=== PATIENT | female | born 1995 | race Caucasian/White ===

== ENCOUNTER 2019-09-08 10:13 | Outpatient (CLI) | payer OTHER, SELFPAY ==
[2019-09-08 10:30] LABS: Hematocrit 33.9 % (37.0-47.0); Hemoglobin 11.2 g/dL (12.0-15.0); Mean Corpuscular Hemoglobin 29.4 pg (26-34); Mean Platelet Volume 11.9 fl (7.4-10.4); Platelet Count Result 146 k/mm3 (150-375); Red Blood Count 3.81 M/mm3 (4.2-5.4); Red Cell Distribution Width 13.7 % (11.5-14.5); White Blood Count 10.3 K/mm3 (4.5-10.0)
[2019-09-10 08:21] LABS: Rapid Plasma Reagin Non-Reactive (NonReactive)
== END 2019-09-08 10:14 | disposition home or self-care (01) ==
PROVIDERS: Visit Provider Obstetrics & Gynecology
DX: Z01.812 Encounter for preprocedural laboratory examination (principal)
CPT/HCPCS: 36415; 85027; 86592; 86850; 86900; 86901

== ENCOUNTER 2019-09-10 05:47 | Inpatient (IN) | payer OTHER, SELFPAY ==
[2019-09-10] VITALS (63 sets, daily range): BP systolic 60–116; BP diastolic 44–71; PULSE 42–147; RESP 15–18; TEMP 36.1–36.7; O2SAT 96–100; BMI 26.9
[2019-09-10] MEDS: LACTATED RINGERS 1,000 ML 125 ML IV CONT (06:26)
--- NOTE | 2019-09-10 06:30 | LDADM ---
This patient, Genny Ayala, was admitted to Labor/Delivery/Recovery 119 on 09/10/19 at 05:47. Plans for labor, pain management and were discussed with patient. Patient/family oriented to hospital policies and general routines including ID bracelet, bed and alarms, visiting hours, pain management, procedures, bathroom and other care routines, personal items, smoking policy, room service/diet and guest tray routines, security routines, and visiting hours. Patient/Family are encouraged to report perceived risks to care and to ask questions if they do not understand what they are told or what they should do. See OBIX for further documentation.
--- NOTE | 2019-09-10 06:47 | WPDANESEPPF ---
Anes - Initial Pre Proc Eval Procedure: Operation Date: 09/10/19 07:30 Proposed Procedures p Section - Joey Hess MD Date/Time: 09/10/19 06:47 Surgeon: Joey Hess MD Pre Op Diagnosis: section Patient Data Age: 24 Gender: F Height: 1.83 m Weight: 90 kg Last Vital Signs Pulse 78 09/10/19 06:28 BP 116/62 09/10/19 06:28 Allergies Allergy/AdvReac Type Severity Reaction Status Date / Time No Known Allergies Allergy Unverified 12/16/17 14:39 Home Medications Medication Instructions Recorded Confirmed Type PNV cmb#95-ferrous fumarate-FA 1 tablet PO DAILY 08/27/19 08/27/19 History [] valacyclovir [Valtrex] 500 mg PO Q12H 08/27/19 08/27/19 History Patient hx anesthesia problems: none Family hx anesthesia problems: none PMFSH Family History Family History (Updated 08/27/19 @ 13:38 by Sofi Brown RN) Mother Cervical cancer Social History Social History Smoking status: Current every day smoker Tobacco type: cigarettes Substance use: current Gender identity (if verbalized by the patient): Female Spiritual care concerns: No Anes - Eval Final PreProcedure Day of Procedure 09/10/19 06:47 Patient weight: overweight Heart: regular rate and rhythm Lungs: clear to auscultation and normal air movement Airway: Mallampati scale class II Neurological: alert and oriented Last oral intake: >/= 8 hours ASA classification: II Emergent: no Anesthetic plan: proceed Anesthesia type and monitoring: regional spinal and standard monitoring Informed Consent: The patient's anesthetic plan and its attendant risks and benefits were discussed with the patient/family/POA. Questions were solicited and answers provided to the satisfaction of the patient/family/POA.
[2019-09-10] MEDS: LACTATED RINGERS 1,000 ML 999 ML IV CONT (07:23)
--- NOTE | 2019-09-10 07:31 | PM.IMHP ---
H&P: HPI History of Present Illness Date/Time: 09/10/19 07:31This patient is a 24-year-old 2 para 1001 at 39 weeks gestation who presents for delivery. She has a active genital herpes outbreak. She reports good movement. She denies any loss of fluid or vaginal bleeding. She denies any headache, blurry vision, epigastric pain. She denies any chest pain or shortness of breath. Chief complaint: section Narrative: Genny Ayala is a 24 year old female Review of Systems Constitutional: Constitutional: Reports no additional constitutional complaints, Denies fatigue, Denies headache(s), Denies lethargy and Denies weakness Eyes: Eyes: Reports no additional eye complaints, Denies blurry vision and Denies photophobia ENT: Reports as per HPI, Denies headache(s) and Denies neck pain Cardiovascular: Cardiovascular: Denies chest pain, Denies diaphoresis, Denies leg edema, Denies palpitations and Denies dyspnea Respiratory: Respiratory: Denies hemoptysis, Denies dyspnea and Denies wheezing Gastrointestinal: Gastrointestinal: Denies abdominal pain, Denies melena, Denies bloating, Denies hematochezia, Denies nausea and Denies vomiting Genitourinary: Genitourinary: Reports no additional female genitourinary complaints Musculoskeletal: Musculoskeletal: Denies joint swelling, Denies neck pain, Denies numbness and Denies stiffness Neurologic: Denies Abnormal speech present, Denies confusion, Denies headache(s), Denies numbness and Denies weakness Psychiatric: Psychiatric: Denies anxiety, Denies confusion, Denies depression, Denies homicidal ideation and Denies suicidal ideation Endocrine: Endocrine: Denies fatigue and Denies palpitations Allergic/Immunologic: Allergic/Immunologic: Denies wheezing [facility] Family History Family History (Updated 08/27/19 @ 13:38 by Sofi Brown RN) Mother Cervical cancer Social History Social History Smoking status: Current every day smoker Tobacco type: cigarettes Substance use: current Gender identity (if verbalized by the patient): Female Spiritual care concerns: No Meds Home Medications and Allergies Home Medications Medication Instructions Recorded Confirmed Type PNV cmb#95-ferrous fumarate-FA 1 tablet PO DAILY 08/27/19 09/10/19 History [] valacyclovir [Valtrex] 500 mg PO Q12H 08/27/19 09/10/19 History Allergies Allergy/AdvReac Type Severity Reaction Status Date / Time No Known Allergies Allergy Unverified 12/16/17 14:39 Vital Signs Vital Signs - 24 hr 09/10/19 06:28 Pulse Rate 78 Blood Pressure 116/62 Exam Const: General: healthy appearing, comfortable and no acute distress; No confusion Orientation/consciousness: No confusion Eyes: Direct Ophthalmoscopy: No photophobia Resp: Auscultation: clear to auscultation bilaterally, no rales, no rhonchi and no wheezes Cardio: Rate: regular rate Heart sounds: no click, no murmurs and no rubs GI: Inspection: non-distended GI Palp: No abdominal tenderness Auscultation: normal bowel sounds Neuro: General: No confusion Speech: No Abnormal speech present Extrem: General: normal to inspection, no pedal edema and no calf tenderness Assessment and Plan Assessment and plan (1) Term : Code(s): Z34.90 - Encounter for supervision of normal , unspecified, unspecified trimester Status: Acute (2) Maternal active HSV, delivered, current hospitalization: Code(s): O98.52 - Other viral diseases complicating childbirth; B00.9 - Herpesviral infection, unspecified Status: Acute Assessment and Plan: This patient is a 24-year-old 2 para 1001 at term with an active HSV outbreak. We are to proceed with delivery. She understands the risks, benefits, and alternatives. She has completed the informed consent process is ready to proceed.
[2019-09-10] MEDS: ceFAZolin 2 GM/D5W 50 ML 2 GM/50 ML BAG IVPB (07:41)
[2019-09-10] MEDS: OXYTOCIN 30 UNITS/NS 500 ML 30 UNITS/500 ML BAG 125 UNITS IV CONT (08:19)
--- NOTE | 2019-09-10 08:29 | P.OP_ITS ---
Procedure Note - Detailed Date of procedure: 09/10/19 Pre-op diagnosis: section Term gestation, Active Genital HSV Post-op diagnosis: same Procedure performed: low-transverse delivery Description of procedure: The patient was taken the operating room. She was prepped and draped in the dorsal supine position with leftward tilt after induction of spinal anesthetic. When anesthesia was found to be adequate a low- transverse skin incision was made and carried down to the level the fascia with the knife. The fascial incision was made at the midline with a scalpel. The fascial incision was extended laterally with [place] scissors. The fascia was tented upward superior and inferior with Amee clamps. The rectus muscles were dissected off bluntly. The rectus muscles at the midline. The preperitoneal fat was dissected bluntly at the superior aspect of the separate the rectus muscles. The peritoneal cavity was entered bluntly in the same area. The peritoneal incision was extended superior and inferior with good visualization of bladder. Bladder blade was inserted. A low-transverse incision was made on the uterus with the scalpel. It was carried down the level of the amniotic cavity with a knife. The amniotic cavity bluntly. The uterine incision was made laterally with blunt traction. The infant was delivered. The cord was clamped and cut. The was handed off to waiting pediatric staff. Cord bloods were obtained. The placenta was removed manually. The uterus was exteriorized. Uterus cleared of all clots and debris. Uterus closed in 0 Vicryl in a running locked fashion. An imbricating layer of 0 Vicryl was also placed on the to bolster the closure. The uterus was returned to the abdomen. The gutters were cleared of all clots and debris. The fascia was closed 0 Vicryl in a running fashion. Subcutaneous tissue was irrigated and bleeding areas were cauterized. The skin was closed with subcuticular absorbable tam. The incision was covered with derma cardenas. The patient tolerated the procedure well. She was taken recovery room stable condition. Sponge, lap, needle counts were correct x2. Anesthesia: spinal Surgeon: Joey Hess MD Estimated blood loss (mL): 650 Drains: No Packing: No Pathology: none sent Complications: No immediate complications Condition: stable Disposition: floor Findings: Normal maternal anatomy. Average size infant with normal Apgars.
[2019-09-10 09:53] LABS: Amphetamine Screen Urine Negative (Negative); Barbiturate Screen Urine Negative (Negative); Benzodiazepines Screen Urine Negative (Negative); Cannabinoid Screen Urine Positive (Negative); Cocaine Screen Urine Negative (Negative); Methadone Screen Urine Negative (Negative); Opiate Screen Urine Negative (Negative); Phencyclidine Screen Urine Negative (Negative)
--- NOTE | 2019-09-10 10:50 | OBPPTRN ---
Patient transferred to post room # 283 via stretcher. Support person present. Oriented to unit, room, information board, rooming in, admission packet and security measures. Patient verbalizes understanding.
[2019-09-10] MEDS: DEXTROSE 5%/0.45% SOD CHL 1,000 ML 125 ML IV CONT (12:23)
[2019-09-10] MEDS: ACETAMINOPHEN 325 MG TABLET 650 MG PO (19:36)
--- NOTE | 2019-09-10 19:57 | PC.NURSE ---
This RN went to give pt her Acyclovir but found none in Pyxis. Called Pharmacy and spoke with Jody that stated she had sent 3 pills this a.m. This RN was unable to find pills in Pyxis. Will inform oncoming nurse of this.
[2019-09-10] MEDS: valACYclovir HCL 500 MG TABLET PO (21:29)
[2019-09-10] MEDS: IBUPROFEN 600 MG TABLET PO (23:21)
[2019-09-11 05:00] VITALS: BP 108/63; PULSE 70; RESP 16; TEMP 36.4; O2SAT 100
[2019-09-11] MEDS: IBUPROFEN 600 MG TABLET PO ×3 (05:34→19:58)
[2019-09-11 06:05] LABS: Basophils Percent Auto 0.3 % (0.2-1.2); Eosinophils Absolute Auto 0.1 K/mm3 (0-0.3); Hematocrit 28.9 % (37.0-47.0); Hemoglobin 9.3 g/dL (12.0-15.0); Immature Granulocyte Absolute 0.03 K/mm3 (0.00-0.031); Immature Granulocyte Percent A 0.3 % (0-0.5); Lymphocytes Absolute Auto 1.81 K/mm3 (0.9-3.2); Lymphocytes Percent Auto 17.4 % (18.3-44.2); Mean Corpuscular HGB Conc 32.2 g/dl (32-36); Mean Platelet Volume 12.4 fl (7.4-10.4); Monocytes Absolute Auto 0.5 K/mm3 (0.1-0.6); Neutrophils Absolute Auto 7.9 K/mm3 (1.3-6.7); Platelet Count Result 118 k/mm3 (150-375); Red Blood Count 3.21 M/mm3 (4.2-5.4); Red Cell Distribution Width 13.6 % (11.5-14.5); White Blood Count 10.4 K/mm3 (4.5-10.0)
--- NOTE | 2019-09-11 07:43 | WPDANLDPN2 ---
Anes-Prog Note L&D Date/Time: 09/11/19 07:43 Comfortable throughout: section Neuraxial method: spinal Epidural/Spinal procedure site: clean & non-tender Neuro status: Neuro function grossly intact. Cardiovascular status: normal Respiratory status: normal Airway patency: baseline Mental status: baseline Post-Op hydration status: normal Vital Signs: Last Vital Signs Temp 36.4 C 09/11/19 05:00 Pulse 70 09/11/19 05:00 Resp 16 09/11/19 05:00 BP 108/63 09/11/19 05:00 Pulse Ox 100 09/11/19 05:00 I/O: Intake & Output 09/10/19 09/10/19 09/11/19 15:59 23:59 07:59 Intake Total 1150 300 Output Total 325 1925 Balance 825 -1625 Post-procedural complaints: none Patient feedback: Patient satisfied with anesthetic care.
--- NOTE | 2019-09-11 07:43 | WPDANLDNPN2 ---
Anes-Prog Note L&D-Neuraxial Date/Time: 09/11/19 07:43 Neuraxial medications: intrathecal PF morphine Opiod-related complaints: none Patient feedback: Patient satisfied with post-operative pain management.
[2019-09-11 08:05] VITALS: BP 101/62; PULSE 72; RESP 18; TEMP 36.4; O2SAT 100
[2019-09-11] MEDS: DOCUSATE SODIUM 100 MG CAPSULE PO ×2 (08:11→17:06)
[2019-09-11] MEDS: MULTIVIT/MIN/PREN/FOL AC/IRON TABLET 1 TAB PO (08:12)
[2019-09-11] MEDS: POLYSACCHARIDE IRON COMPLEX 150 MG CAPSULE PO ×2 (08:12→17:06)
[2019-09-11] MEDS: valACYclovir HCL 500 MG TABLET PO (08:12)
--- NOTE | 2019-09-11 08:36 | PM.OBPNVD ---
OB - PN: Subj Subjective Date/time seen: 09/11/19 08:36 Patient comments: no complaints, pain well controlled, tolerating diet and flatus present OB - PN: Obj Data Labs CBC & Chem 7: 09/11/19 05:38 Labs: Laboratory Results - last 24 hr 09/10/19 09/11/19 09:08 05:38 WBC 10.4 H RBC 3.21 L Hgb 9.3 L Hct 28.9 L MCV 90.0 MCH 29.0 MCHC 32.2 RDW 13.6 Plt Count 118 L MPV 12.4 H Immature Gran % (Auto) 0.3 Neut % (Auto) 76.0 H Lymph % (Auto) 17.4 L [place] % (Auto) 5.0 Eos % (Auto) 1.0 Baso % (Auto) 0.3 Lymph # (Auto) 1.81 [place] # (Auto) 0.5 Eos # (Auto) 0.1 Baso # (Auto) 0.0 Abs Immat Gran (auto) 0.03 Absolute Neuts (auto) 7.9 H Absolute Nucleated RBC 0.0 Nucleated RBC % 0.0 Urine Opiates Screen Negative Urine Methadone Screen Negative Ur Barbiturates Screen Negative Ur Phencyclidine Scrn Negative Ur Amphetamine Screen Negative U Benzodiazepines Scrn Negative Urine Cocaine Screen Negative U Cannabinoids Screen Positive A OB - PN A/P Plan day: 1 Comments: Post Op LTCS - no problems, routine recovery Time Spent With Patient Time: Total time spent is greater than 50% in coordination of care (as documented) at patient's floor/unit and/or counseling patient: Exam Const: General: cooperative, healthy appearing, comfortable and no acute distress Resp: Auscultation: no crackles, no rales, no rhonchi and no wheezes Cardio: Rhythm: regular rhythm Heart sounds: no click and no murmurs GI: Inspection: non-distended Auscultation: normal bowel sounds Extrem: General: normal to inspection, no pedal edema and no calf tenderness
[2019-09-11 20:40] VITALS: BP 106/69; PULSE 73; RESP 16; TEMP 36.9; O2SAT 100
--- NOTE | 2019-09-12 07:34 | PM.OBPNVD ---
OB - PN: Subj Subjective Date/time seen: 09/12/19 07:34 Patient comments: no complaints, pain well controlled, incisional pain, tolerating diet and flatus present OB - PN: Obj Data Labs CBC & Chem 7: 09/11/19 05:38 OB - PN A/P Plan day: 2 Plan: routine care and discharge home Comments: POD#2 LTCS - no problems, Time Spent With Patient Time: Total time spent is greater than 50% in coordination of care (as documented) at patient's floor/unit and/or counseling patient: Exam Const: General: comfortable, no acute distress and alert Resp: Effort & Inspection: normal respiratory effort Auscultation: no crackles, no rales and no rhonchi Cardio: Rate: regular rate Heart sounds: no click, no murmurs and no rubs GI: Inspection: non-distended GI Palp: No Tenderness to palpation present (GI) Auscultation: normal bowel sounds Other: Incision - CDI Extrem: General: normal to inspection, no pedal edema and no calf tenderness
--- NOTE | 2019-09-12 07:36 | PM.OBDSVD ---
DS: Admitting Diagnosis Admitting Diagnosis Admitting Diagnosis: Encounter for supervision of normal , unspecified, unspecified trimester DS: Discharge Diagnosis Discharge Diagnosis (1) Maternal active HSV, delivered, current hospitalization: Code(s): O98.52 - Other viral diseases complicating childbirth; B00.9 - Herpesviral infection, unspecified Status: Acute (2) delivery delivered: Code(s): O82 - Encounter for delivery without indication Status: Acute OB - DS: Summary OB Procedures : None OB Procedures Intrapartum: OB Procedures: : None Peripartum Data Infant Delivery Method: Section Procedures: Procedures Operation Date: 09/10/19 07:30 Actual Procedures Side Surgeon p Section Joey Hess MD complications: none Status at Discharge Functional status at discharge: independent ambulation Time Spent with Patient Time attestation: Total time spent providing and/or coordinating discharge services: DS: Data Data Completed and Pending Pending studies at discharge: Pending at discharge 09/10/19 07:59 Surgical [PTH] Routine Discharge Plan Discharge Discharging Clinician: Joey Hess Patient Disposition: Home, Self-Care Activity: pelvic rest Diet: regular Patient Instructions: How to Stop Smoking (GEN), Cigarette Smoking and Your Health (GEN), Secondhand Smoke Exposure in Children (GEN), Antibiotic Form Stand Alone Forms: General Discharge Information Follow-up/Referrals: Joey Hess MD [Physician] - Discharge Medications: New hydrocodone-acetaminophen 5-325 mg tablet 1 - 2 tablet PO Q4H PRN (Reason: pain) Qty: 25 RF: 0 Continued PNV cmb#95-ferrous fumarate-FA [] 28 mg iron- 800 mcg Tablet 1 tablet PO DAILY RF: 0 valacyclovir [Valtrex] 500 mg Tablet 500 mg PO Q12H RF: 0 Date of admission: 09/10/19 05:47 Primary Care Provider: PHYSICIAN,[employer] TECHNICAL ASSISTANT Admitting Provider: Joey Hess Attending physician on admission: Joey Hess
[2019-09-12 08:20] VITALS: BP 113/74; PULSE 80; RESP 18; TEMP 37; O2SAT 98
[2019-09-12] MEDS: IBUPROFEN 600 MG TABLET PO (08:37)
[2019-09-12] MEDS: DOCUSATE SODIUM 100 MG CAPSULE PO (08:37)
[2019-09-12] MEDS: MULTIVIT/MIN/PREN/FOL AC/IRON TABLET 1 TAB PO (08:37)
[2019-09-12] MEDS: POLYSACCHARIDE IRON COMPLEX 150 MG CAPSULE PO (08:37)
[2019-09-12] MEDS: valACYclovir HCL 500 MG TABLET PO (08:37)
[2019-09-12] MEDS: TETANUS,DIPHTHERIA,AC PERTUSSIS ADULT (0.5 ML) BOOSTRIX IM (09:38)
--- NOTE | 2019-09-12 11:15 | PC.NURSE ---
Patient instructed on viewing the discharge video Mother & Baby Care, The First Two Weeks online. Patient was given the opportunity and encouraged to ask questions. Patient verbalized understanding of information shared and has been given the mother/baby guide for home reference.
[2019-09-14 11:07] VITALS: BP 114/80; PULSE 74; RESP 20; TEMP 36.8; O2SAT 100
== END 2019-09-12 11:40 | disposition home or self-care (01) | DRG 540 ==
LOC: ANHLDR 05:51 → ANHOB2 10:54
PROVIDERS: Admitting Provider Obstetrics & Gynecology; Visit Provider Obstetrics & Gynecology
PROC: 10D00Z1 Extraction of Products of Conception, Low, Open Approach (ICD-10-PCS; CPT 59514; principal; 2019-09-10 07:30)
DX: O98.52 Other viral diseases complicating childbirth (principal); Z37.0 Single live birth; Z3A.39 39 weeks gestation of pregnancy; B00.9 Herpesviral infection, unspecified; O69.81X0 Labor and delivery complicated by cord around neck, without compression, not applicable or unspecified
CPT/HCPCS: 36415; 80307; 85025; 88307; 90715; A9270; J0131; J0690; J2274; J2405; J2590; J7120

== ENCOUNTER 2019-10-22 00:41 | Outpatient (CLI) | payer OTHER, SELFPAY ==
[2019-10-22 16:39] LABS: SARS-CoV-2 RNA PCR Negative
== END 2019-10-22 00:42 | disposition home or self-care (01) ==
LOC: ANHCOVIDDT 00:42
PROVIDERS: Visit Provider Obstetrics & Gynecology
DX: Z01.812 Encounter for preprocedural laboratory examination (principal); Z20.828 Contact with and (suspected) exposure to other viral communicable diseases
CPT/HCPCS: 87635; C9803; U0003

== ENCOUNTER 2019-10-24 01:51 | Day surgery (SDC) | payer OTHER, SELFPAY ==
[2019-10-11 14:28] VITALS: BMI 21.4
[2019-10-24] VITALS (8 sets, daily range): BP systolic 94–121; BP diastolic 53–73; PULSE 47–74; RESP 12–18; TEMP 36–36.6; O2SAT 98–100
--- NOTE | 2019-10-24 08:18 | WPDANESEPPF ---
Anes - Initial Pre Proc Eval Procedure: Operation Date: 10/24/19 10:00 Proposed Procedures p Laparoscopic Tubal Sterilization With Fulguration - Joey Hess MD Date/Time: 10/24/19 08:18 Surgeon: Joey Hess MD Pre Op Diagnosis: Desires Steriliztion Patient Data Age: 24 Gender: F Height: 6 ft Weight: 71.67 kg Allergies Allergy/AdvReac Type Severity Reaction Status Date / Time No Known Allergies Allergy Verified 10/24/19 08:44 Home Medications Medication Instructions Recorded Confirmed Type PNV cmb#95-ferrous fumarate-FA 1 tablet PO DAILY 08/27/19 10/24/19 History [] Patient hx anesthesia problems: none Family hx anesthesia problems: none PMFSH Past Medical History Medical History (Updated 10/24/19 @ 08:18 by Marcellus Trotter MD) Healthy adult Family History Family History (Updated 08/27/19 @ 13:38 by Sofi Brown RN) Mother Cervical cancer Social History Social History Years smoked: 2 Smoking status: Current every day smoker Tobacco type: cigarettes Substance use: current Substance use type: marijuana Last use: 10/09/19 Gender identity (if verbalized by the patient): Female Spiritual care concerns: No Anes - Eval Final PreProcedure Day of Procedure 10/24/19 08:18 Patient weight: normal Heart: regular rate and rhythm Lungs: clear to auscultation Airway: Mallampati scale class II Neurological: alert and oriented Last oral intake: >/= 8 hours ASA classification: II Emergent: no Anesthetic plan: proceed Anesthesia type and monitoring: general ETT and standard monitoring Informed Consent: The patient's anesthetic plan and its attendant risks and benefits were discussed with the patient/family/POA. Questions were solicited and answers provided to the satisfaction of the patient/family/POA.
[2019-10-24] MEDS: ACETAMINOPHEN 500 MG TABLET 1000 MG PO (08:48)
[2019-10-24] MEDS: KETOROLAC 15 MG/ML VIAL (*BKC) IV PUSH (09:05)
[2019-10-24] MEDS: LACTATED RINGERS 1,000 ML 30 ML IV CONT ×2 (09:06→11:43)
--- NOTE | 2019-10-24 10:12 | SUR.PREOP ---
1010 updated pt on delay to or and pt states will updated family.
--- NOTE | 2019-10-24 10:21 | PM.IMHP ---
H&P: HPI History of Present Illness Date/Time: 10/24/19 10:21 Chief complaint: Desires Steriliztion Narrative: Genny Ayala is a 24 year old female Who desires female sterilization. She understands that sterilization is permanent. I recommended laparoscopic bilateral tubal ligation. She was to proceed with that. She understands there is risk. She understands that injuries may occur that result in hospitalization, severe illness, and more surgery. She understands risk of hemorrhage and infection. Review of Systems Constitutional: Constitutional: Reports no additional constitutional complaints, Denies fatigue, Denies headache(s), Denies lethargy and Denies weakness Eyes: Eyes: Reports no additional eye complaints, Denies blurry vision and Denies photophobia ENT: Reports as per HPI, Denies headache(s) and Denies neck pain Cardiovascular: Cardiovascular: Denies chest pain, Denies diaphoresis, Denies leg edema, Denies palpitations and Denies dyspnea Respiratory: Respiratory: Denies hemoptysis, Denies dyspnea and Denies wheezing Gastrointestinal: Gastrointestinal: Denies abdominal pain, Denies melena, Denies bloating, Denies hematochezia, Denies nausea and Denies vomiting Genitourinary: Genitourinary: Reports no additional female genitourinary complaints Musculoskeletal: Musculoskeletal: Denies joint swelling, Denies neck pain, Denies numbness and Denies stiffness Neurologic: Denies Abnormal speech present, Denies confusion, Denies headache(s), Denies numbness and Denies weakness Psychiatric: Psychiatric: Denies anxiety, Denies confusion, Denies depression, Denies homicidal ideation and Denies suicidal ideation Endocrine: Endocrine: Denies fatigue and Denies palpitations Allergic/Immunologic: Allergic/Immunologic: Denies wheezing PMFSH Past Medical History Medical History (Updated 10/24/19 @ 10:22 by Joey Hess MD) Healthy adult Family History Family History (Updated 08/27/19 @ 13:38 by Sofi Brown RN) Mother Cervical cancer Social History Social History Years smoked: 2 Smoking status: Current every day smoker Tobacco type: cigarettes Substance use: current Substance use type: marijuana Last use: 10/09/19 Gender identity (if verbalized by the patient): Female Spiritual care concerns: No Meds Home Medications and Allergies Home Medications Medication Instructions Recorded Confirmed Type PNV cmb#95-ferrous fumarate-FA 1 tablet PO DAILY 08/27/19 10/24/19 History [] Allergies Allergy/AdvReac Type Severity Reaction Status Date / Time No Known Allergies Allergy Verified 10/24/19 08:44 Vital Signs Vital Signs - 24 hr 10/24/19 09:08 Temperature 97.8 F Pulse Rate 73 Respiratory Rate 12 Blood Pressure 94/53 L Pulse Oximetry 100 Exam Const: General: healthy appearing, comfortable and no acute distress; No confusion Orientation/consciousness: No confusion Eyes: Direct Ophthalmoscopy: No photophobia Resp: Auscultation: clear to auscultation bilaterally, no rales, no rhonchi and no wheezes Cardio: Rate: regular rate Heart sounds: no click, no murmurs and no rubs GI: Inspection: non-distended GI Palp: No abdominal tenderness Auscultation: normal bowel sounds Neuro: General: No confusion Speech: No Abnormal speech present Extrem: General: normal to inspection, no pedal edema and no calf tenderness Assessment and Plan Assessment and plan (1) Encounter for female sterilization procedure: Code(s): Z30.2 - Encounter for sterilization Status: Acute Assessment and Plan: this patient is a 24-year-old multiparous female who desires female sterilization. Were going to proceed with laparoscopic bilateral tubal ligation. She understands risks, benefits, and alternatives. She has completed the informed consent process and is ready to proceed.
--- NOTE | 2019-10-24 10:23 | WPDHPUPDATE1 ---
History and Physical Update Update Date/Time: 10/24/19 10:23 History and Physical has been reviewed, including an updated exam of the patient. There are NO changes in the patient's condition. Risks, benefits, and alternatives have been discussed and questions answered. Patient agrees to proceed with procedure.
--- NOTE | 2019-10-24 12:17 | PM.PROC ---
Procedure Note - Detailed Date of procedure: 10/24/19 Pre-op diagnosis: Desires Steriliztion Post-op diagnosis: same Procedure performed: Laparoscopic bilateral tubal ligation Description of procedure: Patient was taken the operating room. She has prepped draped in the dorsal lithotomy position after induction of general anesthesia. A 5 mm abdominal incision was made in left upper quadrant of the abdomen with scalpel. A 5 mm trocars inserted the intra-abdominal cavity under direct visualization of the scope. Pneumoperitoneum was achieved. A 5 mm periumbilical incision was made using a scalpel on the abdominal scan. A 5 mm trocar was inserted the intra-abdominal cavity under visualization of the scope. The fallopian tube was grasped with the bipolar cautery in the ampullary region. It was completely desiccated in a 1.5 cm area of the fallopian tube. This was performed in identical fashion on the contralateral side. The instruments were withdrawn. The pneumoperitoneum was reduced. The trocars were removed. The skin was closed with subcuticular 4 Monocryl. This incisions were covered with Dermabond. The patient tolerated the procedure well. She was taken to recover room in stable condition. Anesthesia: GETA Surgeon: Joey Hess MD Estimated blood loss (mL): 10 Drains: No Packing: No Pathology: none sent Complications: No immediate complications Condition: stable Disposition: PACU Findings: Normal female pelvic anatomy.
--- NOTE | 2019-10-24 14:10 | SUR.PHASEII ---
1340 PT DRESSED. PT MEETS ANESTHESIA DISCHARGE CRITERIA. WAITING ON RIDE HOME.
== END 2019-10-24 13:57 | disposition home or self-care (01) ==
PROVIDERS: Visit Provider Obstetrics & Gynecology
PROC: (CPT 58671; principal; 2019-10-24 10:00)
DX: Z30.2 Encounter for sterilization (principal); F17.210 Nicotine dependence, cigarettes, uncomplicated
CPT/HCPCS: 58670; A9270; J1885; J2250; J3010; J7120

== ENCOUNTER 2020-07-21 18:34 | Emergency (ER) | payer OTHER, SELFPAY ==
[2020-07-21 18:47] VITALS: BP 117/68; PULSE 104; RESP 17; TEMP 36.7; O2SAT 98
[2020-07-21 21:11] LABS: Basophils Percent Auto 0.3 % (0.2-1.2); Eosinophils Absolute Auto 0.1 K/mm3 (0-0.3); Eosinophils Percent Auto 0.7 % (0-4.4); Hematocrit 38.2 % (37.0-47.0); Hemoglobin 12.3 g/dL (12.0-15.0); Immature Granulocyte Absolute 0.04 K/mm3 (0.00-0.031); Immature Granulocyte Percent A 0.3 % (0-0.5); Lymphocytes Absolute Auto 1.93 K/mm3 (0.9-3.2); Lymphocytes Percent Auto 15.3 % (18.3-44.2); Mean Corpuscular HGB Conc 32.2 g/dl (32-36); Mean Corpuscular Hemoglobin 27.6 pg (26-34); Mean Corpuscular Volume 85.8 fl (80-100); Mean Platelet Volume 12.6 fl (7.4-10.4); Monocytes Absolute Auto 0.6 K/mm3 (0.1-0.6); Monocytes Percent Auto 4.9 % (2.6-8.5); Neutrophils Absolute Auto 9.9 K/mm3 (1.3-6.7); Neutrophils Percent Auto 78.5 % (45.5-73.1); Platelet Count Result 175 k/mm3 (150-375); Red Blood Count 4.45 M/mm3 (4.2-5.4); Red Cell Distribution Width 13.7 % (11.5-14.5); White Blood Count 12.6 K/mm3 (4.5-10.0)
[2020-07-21 21:22] LABS: Anion Gap 10 mmol/L (8-16); Blood Urea Nitrogen 10 mg/dL (7-17); Calcium 9.1 mg/dL (8.4-10.2); Carbon Dioxide 21 mmol/L (22-30); Chloride 109 mmol/L (98-107); Estimated CRCL calculation 133 ml/min; Estimated Glomerular Filt Rate > 60; Glucose 96 mg/dL (65-105); Potassium 3.9 mmol/L (3.4-5.0); Sodium 140 mmol/L (137-145)
[2020-07-21] MEDS: CLINDAMYCIN 600 MG/D5W 50 ML 600 MG/50 ML PIGGYBACK 100 MG IVPB (21:34)
--- NOTE | 2020-07-21 21:37 | ED.GENADULT ---
HPI - General Adult General Chief complaint: Skin/Abscess/Foreign Body Stated complaint: PIERCING SITE INFECTED Time Seen by Provider: 07/21/20 21:06 History of Present Illness HPI narrative: Patient with 25-year-old female who presents the emergency department with chief complaint of right breast cellulitis. The patient reports that she was seen at [facility] after she had a nipple piercing that started getting red and swollen. The patient states that she changes the initial piercing out and then ultimately removed it she has been taking Bactrim and has not had any improvement. The patient states the areas become progressively more swollen and progressively more tender. Patient denies fever denies chills Related Data Home Medications Medication Instructions Recorded Confirmed PNV cmb#[id number] fumarate-FA 1 tablet PO DAILY 08/27/19 10/24/19 [] Allergies Allergy/AdvReac Type Severity Reaction Status Date / Time No Known Allergies Allergy Verified 10/24/19 08:44 Review of Systems Review of Systems: Narrative: A 10 system review of systems was completed on the patient and is negative except for what is stated in the HPI. Nursing and ancillary documentation was reviewed. [facility] Past Medical History Medical History Healthy adult Family History Family History Mother Cervical cancer Social History Social History Years smoked: 2 Smoking status: Current every day smoker Tobacco type: cigarettes Substance use: current Substance use type: marijuana Last use: 10/09/19 Gender identity (if verbalized by the patient): Female Spiritual care concerns: No Exam Narrative: Exam Narrative: GENERAL: Well-appearing, well-nourished, and in no acute distress. HEAD: Normocephalic, atraumatic. EYES: PERRLA and EOMI. ENT: Nares clear, no rhinorrhea or epistaxis. Mucous membranes moist. NECK: Supple. CHEST: Clear to auscultation. No respiratory distress. Chest wall: The right breast is erythematous there is swelling in the 12 o'clock position of the areola there is no crepitance there is a slight area of fluctuance at approximately the 12 to 1 o'clock position HEART: Regular rate and rhythm. No murmur heard. Normal peripheral pulses. ABDOMEN: Soft, nontender, nondistended, normal active bowel sounds. EXTREMITIES: Normal range of motion. No edema. SKIN: Warm, dry, no rash. NEURO: No focal deficits. Alert and oriented x3. PSYCH: Normal mood and affect. Course Vital Signs Vital signs: Vital Signs Temperature 36.7 C 07/21/20 18:47 Pulse Rate 104 H 07/21/20 18:47 Respiratory Rate 17 07/21/20 18:47 Blood Pressure 117/68 07/21/20 18:47 Pulse Oximetry 98 07/21/20 18:47 Temperature 36.7 C 07/21/20 18:47 Pulse Rate 104 H 07/21/20 18:47 Respiratory Rate 17 07/21/20 18:47 Blood Pressure 117/68 07/21/20 18:47 Pulse Oximetry 98 07/21/20 18:47 Medical Decision Making Vital Signs Vital Signs: Vital Signs Temperature 36.7 C 07/21/20 18:47 Pulse Rate 104 H 07/21/20 18:47 Respiratory Rate 17 07/21/20 18:47 Blood Pressure 117/68 07/21/20 18:47 Pulse Oximetry 98 07/21/20 18:47 Temperature 36.7 C 07/21/20 18:47 Pulse Rate 104 H 07/21/20 18:47 Respiratory Rate 17 07/21/20 18:47 Blood Pressure 117/68 07/21/20 18:47 Pulse Oximetry 98 07/21/20 18:47 Lab Data Result diagrams: 07/21/20 21:06 07/21/20 21:06 Labs: Lab Results 07/21/20 07/21/20 Range/Units 21:06 21:06 WBC 12.6 H (4.5-10.0) K/mm3 RBC 4.45 (4.2-5.4) M/mm3 Hgb 12.3 D (12.0-15.0) g/dL Hct 38.2 (37.0-47.0) % MCV 85.8 (80-100) fl MCH 27.6 (26-34) pg MCHC 32.2 (32-36) g/dl RDW 13.7 (11.5-14.5) % Plt Count 175 (150-375)
[2020-07-21 23:09] VITALS: BP 113/72; PULSE 74; RESP 18; O2SAT 99
== END 2020-07-21 23:10 | disposition home or self-care (01) ==
PROVIDERS: Emergency Medicine Emergency Medical Services; Emergency Provider Emergency Medicine
DX: N61.1 Abscess of the breast and nipple (principal); F17.210 Nicotine dependence, cigarettes, uncomplicated
CPT/HCPCS: 36415; 80048; 85025; 96365; 99284